=== PATIENT | female | born 1955 | race Hispanic/Latino ===

== ENCOUNTER 2018-09-14 05:35 | Observation (INO) | payer BC ==
[~2018-09-14] VITALS: Ht 154.9 cm; Wt 87.1 kg
[2018-09-14] VITALS (20 sets, daily range): BP systolic 94–114; BP diastolic 42–75
[~2018-09-14 05:35] MED LIST: LISI-613 PO
[2018-09-14 05:58] LABS: APPEARANCE,URINE Turbid (CLEAR); BILIRUBIN,URINE Small (NEGATIVE); COLOR,URINE Orange (YELLOW); GLUCOSE, URINE (UA) Negative (NEGATIVE); KETONES,URINE Trace mg/dL (NEGATIVE); LEUKOCYTE ESTERASE ,URINE Moderate (NEGATIVE); NITRATE,URINE Positive (NEGATIVE); OCCULT BLOOD,URINE Small (NEGATIVE); PROTEIN,URINE POS 1+ (NEGATIVE)
[2018-09-14] MEDS ORDERED: MORPHINE SULFATE 2 MG/ML 1ML SYG ONE (06:00)
[2018-09-14] MEDS ORDERED: ONDANSETRON HCL 4 MG/2 ML VIAL ONE ×2 (06:00→12:26)
[2018-09-14 06:04] LABS: AMORPHOUS SEDIMENT,UR Moderate /LPF (None Seen); BACTERIA,URINE Many /HPF (None Seen); MUCUS,URINE Moderate LPF (None Seen); SQUAMOUS EPITHELIAL CELL,UR Many /HPF (0-2)
[2018-09-14 06:18] LABS: BASOPHILS % (AUTO) 0.2 % (0.0-5.0); EOSINOPHILS % (AUTO) 0.2 % (0.0-8.0); HEMATOCRIT 39.7 % (36-48); LYMPHOCYTES % (AUTO) 5.4 % (21.0-51.0); MEAN CORPUSCULAR HEMOGLOBIN 28.9 pg (27.0-33.0); MEAN CORPUSCULAR HGB CONC 33.4 g/dL (32.0-36.0); MEAN CORPUSCULAR VOLUME 86.3 fL (79-99); MONOCYTES % (AUTO) 3.7 % (3.0-13.0); NEUTROPHILS % (AUTO) 90.5 % (40.0-77.0); PLATELET COUNT (AUTO) 258 K/uL (130-400); RED CELL DISTRIBUTION WIDTH 13.9 % (11.0-15.5); WHITE BLOOD COUNT (AUTO) 14.7 K/uL (4.8-10.8)
[2018-09-14 06:25] LABS: CREATININE 1.8 mg/dL (0.5-1.5); POTASSIUM 3.6 mmol/L (3.5-5.1)
[2018-09-14 06:31] LABS: ALBUMIN 3.6 g/dL (3.5-5.0); BILIRUBIN,TOTAL 1.2 mg/dL (0.2-1.0); TOTAL PROTEIN, SERUM 8.2 g/dL (6.0-8.3)
[2018-09-14] MEDS ORDERED: CEFOXITIN SODIUM 2 GM VIAL ONE (07:21)
[2018-09-14 07:36] LABS: INR 1.12 (0.85-1.15); PARTIAL THROMBOPLASTIN TIME 32.8 SEC (26.3-35.5); PROTHROMBIN TIME 11.7 SEC (9.6-11.6)
[2018-09-14] MEDS ORDERED: DEXTROSE 5 %-0.45 % NACL 1,000 ML IV SCH (10:00)
[2018-09-14] MEDS: FAMOTIDINE/PF 20 MG/2 ML VIAL IV SCH ×2 (10:00→21:05)
[2018-09-14] MEDS ORDERED: ONDANSETRON HCL 4 MG/2 ML VIAL IVP PRN ×2 (10:00→14:55)
[2018-09-14] MEDS ORDERED: DEXAMETHASONE SOD PHOSPHATE 10MG/ML 1ML VIAL ONE (12:25)
[2018-09-14] MEDS ORDERED: LIDOCAINE PF 2% 5ML ABBOJECT ONE (12:25)
[2018-09-14] MEDS ORDERED: PROPOFOL 10 MG/ML 20ML VIAL IV ONE (12:26)
[2018-09-14] MEDS ORDERED: SUCCINYLCHOLINE 200MG/10ML SYR ONE (12:26)
[2018-09-14] MEDS ORDERED: FENTANYL CITRATE PF 50 MCG/1 ML 2ML VIAL ONE (12:26)
[2018-09-14] MEDS ORDERED: ROCURONIUM 10MG/1ML SYR 10 MG/ML ML ONE (12:26)
[2018-09-14] MEDS ORDERED: MIDAZOLAM HCL 1 MG/ML 2ML VIAL ONE (12:26)
[2018-09-14] MEDS ORDERED: BUPIVACAINE/PF 0.5% 10ML VIAL ONE (12:42)
[2018-09-14] MEDS ORDERED: NEOSTIGMINE 5MG/5ML SYR IV ONE (13:22)
[2018-09-14] MEDS ORDERED: GLYCOPYRROLATE 1 MG/5 ML SYRINGE ONE (13:22)
[2018-09-14] MEDS ORDERED: MEPERIDINE-PF 25 MG/ML SYG IV PRN (15:00)
[2018-09-14] MEDS ORDERED: TRAMADOL HCL 50 MG TABLET PO PRN ×2 (15:00)
[2018-09-14] MEDS: LACTATED RINGERS 1000ML 1,000 ML IV SCH ×2 (15:32→21:05)
[2018-09-14] MEDS: LEVOFLOXACIN 500 MG TABLET PO SCH (21:05)
[2018-09-14] MEDS: METRONIDAZOLE 500 MG TABLET PO SCH (21:05)
[2018-09-14] MEDS: ACETAMINOPHEN 325 MG TAB PO PRN (21:24)
[2018-09-15] MEDS: METRONIDAZOLE 500 MG TABLET PO SCH ×3 (01:11→13:00)
[2018-09-15 04:00] VITALS: BP 104/50
[2018-09-15] MEDS: ACETAMINOPHEN 325 MG TAB PO PRN (05:05)
[2018-09-15 05:47] LABS: HEMATOCRIT 28.9 % (36-48); MEAN CORPUSCULAR HEMOGLOBIN 29.5 pg (27.0-33.0); MEAN CORPUSCULAR HGB CONC 33.8 g/dL (32.0-36.0); MEAN CORPUSCULAR VOLUME 87.4 fL (79-99); NUCLEATED RED BLOOD CELLS 0.1 % (0.0-0.19); PLATELET COUNT (AUTO) 199 K/uL (130-400); RED CELL DISTRIBUTION WIDTH 14.1 % (11.0-15.5); WHITE BLOOD COUNT (AUTO) 9.4 K/uL (4.8-10.8)
[2018-09-15 05:56] LABS: POTASSIUM 3.5 mmol/L (3.5-5.1)
[2018-09-15] MEDS: LACTATED RINGERS 1000ML 1,000 ML IV SCH (06:01)
[2018-09-15 08:00] VITALS: BP 107/49
[2018-09-15] MEDS: FAMOTIDINE/PF 20 MG/2 ML VIAL IV SCH (09:07)
[2018-09-15] MEDS: LEVOFLOXACIN 500 MG TABLET PO SCH (09:07)
--- NOTE | 2018-09-15 14:18 | NUR ---
DISCHARGE PATIENT GIVEN DISCHARGE INFORMATION AND EDUCATION ON FOLLOW UP APPOINTMENTS, SIDE EFFECTS ON NEW PRESCRIBED MEDICATION AND POST-OP CARE. PATIENT VERBALIZED UNDERSTANDING OF ALL EDUCATION GIVEN VIA TEACH BACK. IV DISCONTINUED,CATHETER INTACT. ALL BELONGINGS TAKEN WITH. NO DISTRESS NOTED UPON DISCHARGE. PATIENT LEFT VIA WHEELCHAIR TO PRIVATE CAR, PCP AND FAMILY AT SIDE.
== END 2018-09-15 14:15 | disposition home or self-care (01) ==
LOC: EDH 05:35 → EDHIP 08:40 → 3BH 14:49
PROVIDERS: ADMIT Family Medicine; ATTEND Family Medicine
DX: K35.80 Unspecified acute appendicitis (principal); E66.9 Obesity, unspecified; I10 Essential (primary) hypertension; N39.0 Urinary tract infection, site not specified; Z82.49 Family history of ischemic heart disease and other diseases of the circulatory system; Z80.42 Family history of malignant neoplasm of prostate; Z90.49 Acquired absence of other specified parts of digestive tract; Z68.36 Body mass index [BMI] 36.0-36.9, adult; Z79.01 Long term (current) use of anticoagulants
CPT/HCPCS: 36415 ×2; 44970; 71045; 74176; 80048; 80053; 81001; 83690; 85025; 85027; 85610; 85730; 87088; 88304; 93005; 96374; 96376; 99283; A4344; A4649 ×5; G0378 ×30; J0330; J0694; J1100; J2001; J2250; J2405 ×2; J2704; J2710; J3010; J3490 ×4; J7030; J7120 ×3